=== PATIENT | female | born 1955 ===

== ENCOUNTER 2022-10-13 09:01 | Day surgery (SDC) | payer OTHER ==
[~2022-10-13] VITALS: Ht 157.5 cm; Wt 47.6 kg
[2022-10-13] MEDS ORDERED: LIDOCAINE 2% 100 MG/5 ML UJET TP ONE (13:03)
[2022-10-13] MEDS ORDERED: fentaNYL citrate 0.05 MG/ML VIAL ONE (13:04)
[2022-10-13] MEDS ORDERED: fentaNYL citrate 0.05 MG/ML VIAL IVP ONE (13:20)
== END 2022-10-13 12:06 | disposition home or self-care (01) ==
LOC: MMU 09:01 → MDS 09:01
PROVIDERS: ATTEND Internal Medicine Gastroenterology
DX: Z12.11 Encounter for screening for malignant neoplasm of colon (principal); K62.1 Rectal polyp; K63.5 Polyp of colon; K57.30 Diverticulosis of large intestine without perforation or abscess without bleeding; I10 Essential (primary) hypertension; E11.9 Type 2 diabetes mellitus without complications; E78.5 Hyperlipidemia, unspecified; Z79.82 Long term (current) use of aspirin; Z79.84 Long term (current) use of oral hypoglycemic drugs; Z79.899 Other long term (current) drug therapy; Z20.822 Contact with and (suspected) exposure to COVID-19
CPT/HCPCS: 45380; 87426; J3010